=== PATIENT | female | born 1955 | race American Indian/Alaskan Native ===

== ENCOUNTER 2017-08-19 12:09 | Emergency (ER) | payer MEDICAID ==
[2017-08-19 12:34] VITALS: BP 134/81
--- NOTE | 2017-08-19 16:25 | Emergency Department Report ---
Blank Doc - Documentation Documentation: Patient presents with complaint of headache. Patient reports that for the antenna is growing out of her head. Patient denies homicidal suicidal ideation. Denies trauma. Plan ER radiate radiological evaluation in the ER. Plan mental health screening.
[2017-08-19 16:46] LABS: Basophils % (Auto) 0.5 % (0.0-1.8); Eosinophils % (Auto) 0.7 % (0.0-4.3); Hemoglobin 18.2 gm/dl (10.1-14.3); Lymphocytes # (Auto) 2.1 K/mm3 (1.2-5.4); Lymphocytes % (Auto) 44.5 % (13.4-35.0); Mean Corpuscular HGB Conc 33 % (30-34); Mean Corpuscular Hemoglobin 31 pg (28-32); Mean Corpuscular Volume 95 fl (79-97); Monocytes # (Auto) 0.3 K/mm3 (0.0-0.8); Monocytes % (Auto) 7.4 % (0.0-7.3); Platelet Count 182 K/mm3 (140-440); Red Cell Distribution Width 15.8 % (13.2-15.2)
[2017-08-19 16:55] LABS: Alanine Aminotransferase 6 units/L (7-56); Albumin 4.2 g/dL (3.9-5); BUN/Creatinine Ratio 24; Blood Urea Nitrogen 12 mg/dL (7-17); Calcium 9.5 mg/dL (8.4-10.2); Hemolysis Index 20
--- NOTE | 2017-08-19 18:34 | Cat Scan Report ---
FINAL REPORT EXAM: CT HEAD/BRAIN WO CON HISTORY: Alterted Mental Status TECHNIQUE: CT was performed from the foramen magnum through the vertex in the axial plane without the use of intravenous contrast. PRIORS: None. FINDINGS: The fry/white matter attenuation pattern is normal. There is no mass lesion or mass effect. There are no abnormal extra-axial fluid collections. There is no evidence of acute intracranial hemorrhage or infarct. The ventricles are of normal size and configuration. The skull and orbits are unremarkable. The visualized paranasal sinuses are clear. IMPRESSION: Normal CT of the head.
== END 2017-08-20 01:30 | disposition left against medical advice (07) ==
LOC: ED 12:09
DX: R42 Dizziness and giddiness (principal); Z53.21 Procedure and treatment not carried out due to patient leaving prior to being seen by health care provider; Z79.899 Other long term (current) drug therapy
CPT/HCPCS: 36415; 70450; 80053; 84484; 85025; G0480; 80320

== ENCOUNTER 2021-05-16 08:11 | Inpatient (IN) | payer MEDICAID, MEDICARE ==
--- NOTE | 2021-05-16 12:34 | Anesthesia Day of Surgery ---
Anesthesia Day of Surgery - Day of Surgery Patient Examined: Yes Patient H&P Reviewed: Yes Patient is NPO: Yes
--- NOTE | 2021-05-16 12:36 | Anesthesia Consultation ---
Anesthesia Consult and Med Hx Date of service: 05/16/21 - Airway Anesthetic Teeth Evaluation: Edentulous ROM Head & Neck: Adequate Mental/Hyoid Distance: Adequate Mallampati Class: Class II Intubation Access Assessment: Good - Pre-Operative Health Status ASA Pre-Surgery Classification: ASA3 Proposed Anesthetic Plan: General - Pulmonary Hx Smoking: Yes COPD: Yes - Cardiovascular System Hx Hypertension: Yes Hx Peripheral Vascular Disease: Yes - Central Nervous System Hx Psychiatric Problems: Yes (Schizophrenia, DEMENTIA) - Hematic Hx Anemia: No Hx Sickle Cell Disease: No - Other Systems Hx Obesity: No - Additional Comments Anesthesia Medical History Comments: Was here [id number]. NHR under hospice care
[2021-05-16] MEDS ORDERED: ceFAZolin/Water 2 GM/20 ML 2 GM/20 ML SYRINGE IV NR (13:00)
[2021-05-16] MEDS ORDERED: HEPARIN 5,000 UNIT/1 ML VIAL SUB-Q NR (13:00)
[2021-05-16 13:46] LABS: Hematocrit 43.8 % (30.3-42.9); Hemoglobin 13.2 gm/dl (10.1-14.3)
[2021-05-16] MEDS ORDERED: ceFAZolin/Water 2 GM/20 ML 2 GM/20 ML SYRINGE IV ONE (13:47)
[2021-05-16] MEDS ORDERED: LACTATED RINGERS 1,000 ML ONE (13:57)
[2021-05-16 14:00] LABS: Blood Urea Nitrogen 10 mg/dL (7-17); Hemolysis Index 6
[2021-05-16] MEDS: LACTATED RINGERS 1,000 ML IV SCH ×2 (14:00→23:12)
[2021-05-16 14:10] LABS: BUN/Creatinine Ratio 20
[2021-05-16] MEDS ORDERED: propofoL 200 MG/20 ML VIAL IV ONE ×2 (17:08→17:39)
[2021-05-16] MEDS ORDERED: dexAMETHasone 20 MG/5 ML VIAL ONE (17:42)
[2021-05-16] MEDS ORDERED: ONDANSETRON 4 MG/2 ML INJ ONE (17:43)
[2021-05-16] MEDS ORDERED: LIDOCAINE MPF (2%) 20 MG/1 ML VIAL 5 ML ONE (17:43)
[2021-05-16] MEDS ORDERED: HYDROmorphone 1 MG/1 ML INJ ONE (17:47)
[2021-05-16] MEDS ORDERED: SODIUM CHLORIDE 0.9% IRR 1,500 ML BOTTLE IR ONE (17:48)
--- NOTE | 2021-05-16 19:01 | Procedure Note ---
Date of procedure: 05/16/21 Pre-op diagnosis: Necrotic left BKA stump Post-op diagnosis: same Procedure: Left AKA Description of procedure: Pt was placed supine on the OR table. General anesthesia was administered. Left knee and thigh were prepped and draped. A fish mouth incision was made at the level of the distal thigh. Greater saphenous vein was clamped, divided and ligated with 2-0 silk ties. Fascia and musculature was transected with the Bovie. The SFA & SFV were individually clamped, divided and ligated with 0-silk ties. Posterior musculature was transected with an amputation knife. The periosteum of the femur was elevated. Femur was amputated high with a bone saw. Posterior and anterior fascia were approximated with interrupted sutures of 0-Vicryl. Skin was approximated with melissa and a running 3-0 Nylon suture. Xeroform gauze was applied to the inci jeff followed by fluffed 4 X 4's, Kerlix wrap and Coban wrap. Pt tolerated the procedure well. Pt was taken to PACU in stable condition. Anesthesia: GETA Surgeon: NICHO ROBERTS Estimated blood loss: 50-100ml Pathology: list (Left BKA stump and distal thigh) Specimen disposition: to lab Condition: stable Disposition: PACU
--- NOTE | 2021-05-16 19:03 | History and Physical Report ---
History of Present Illness Date of admission: 05/16/21 11:58 Chief complaint: Leg is looking bad History of present illness: 65 YO Female [facility] Facility Resident currently on Hospice Care with CHF, COPD, HTN, PVD complicated by Left Lower Limb Ischemia, Schizophrenia, Vascular Dementia, Cerebral Atherosclerosis, Debility found to have worsening left lower extremity ischemia. Patient has diminished cognition and unable to provide history. Patient history taken from medical record as well as family who made available by telephone for interview. As per family "the leg has got ten worse". Patient seen and evaluated by surgical team and taken urgently to the operating room for surgical intervention due to critical left lower extremity ischemia. Patient admitted to medical floor due to increased risk of worsening symptoms. No reports of fever, chills, chest pain, palpitation, adductive cough, skin rash, recent contact, known exposure to COVID-19. Prior admission on 04/19/2021 reviewed. All medication listed at time of admission has been reconciled. Advanced care planning conducted. Patient family request urgent surgical intervention at this time. No further history is obtainable. Patient has diminished cognition but has a positive gag reflex and is able to protect her airway without difficulty. Past History Past Medical History: COPD, hypertension, PVD, other (See HPI) Past Surgical History: Other (Left BKA) Social history: single Medications and Allergies Allergies Allergy/AdvReac Type Severity Reaction Status Date / Time chlorpromazine HCl AdvReac Unknown Verified 08/19/17 12:30 [From Thorazine] Home Medications Medication Instructions Recorded Confirmed Last Taken Type Albuterol Sulfate [Proventil Hfa] 2 puff IH Q6H PRN 04/19/21 05/14/21 Unknown History Calcium Carbonate [Calcium] 500 mg PO QDAY 04/19/21 05/14/21 Unknown History Cetirizine HCl [Allergy] 10 mg PO QDAY 04/19/21 05/14/21 Unknown History Cholecalciferol (Vitamin D3) 50 mcg PO QDAY 04/19/21 05/14/21 Unknown History [Vitamin D3] Dicyclomine [Bentyl] 20 mg PO QID PRN 04/19/21 05/14/21 Unknown History Divalproex Sprinkle [Depakote 500 mg PO BID 04/19/21 05/14/21 Unknown History Sprinkle] Fluticasone/Salmeterol [Advair 1 puff IH Q12H 04/19/21 05/14/21 Unknown History Diskus 250-50 mcg] Omeprazole 40 mg PO QDAY 04/19/21 05/14/21 Unknown History LORazepam [Ativan] 1 mg PO Q4H PRN #30 04/24/21 05/14/21 Unknown Rx LORazepam [Ativan] 1 mg PO QHS #30 04/24/21 05/14/21 Unknown Rx Ondansetron HCl [Zofran] 4 mg PO Q4H PRN #30 04/24/21 05/14/21 Unknown Rx QUEtiapine [SEROquel] 200 mg PO BID #60 04/24/21 05/14/21 Unknown Rx traMADoL [Ultram 50 MG tab] 50 mg PO Q4HR PRN #90 04/24/21 05/14/21 Unknown Rx Ascorbic Acid [Vitamin C] 500 mg PO DAILY 05/14/21 05/14/21 Unknown History DOXYCYCLINE Hyclate [Vibramycin] 100 mg PO Q12HR 05/14/21 05/14/21 Unknown History Multivitamin with Minerals [Hair, 1 each PO DAILY 05/14/21 05/14/21 Unknown History Skin and Nails] Oxycodone HCl/Acetaminophen 1 tab PO Q6H PRN 05/14/21 05/14/21 Unknown History [Oxycodone-Acetaminophn 7.5-325] Zinc Gluconate [Zinc] 50 mg PO DAILY 05/14/21 05/14/21 Unknown History Active Meds: Active Medications Heparin Sodium (Porcine) (Heparin 5,000 Unit/1 Ml Vial) 5,000 unit SUB-Q PREOP NR Stop: 05/16/21 20:00 Last Admin: 05/16/21 14:10 Dose: 5,000 unit Cefazolin Sodium (Ancef/Sterile Water 2 Gm/20 Ml) 2 gm in 20 mls @ 80 mls/hr IV PREOP NR Stop: 05/16/21 20:00 Lactated Ringer's (Lactated Ringers) 1,000 mls @ 42 mls/hr IV DIRECT LEE Last Admin: 05/16/21 14:00 Dose: 42 mls/hr Review of Systems ROS unobtainable: due to mental status Exam - Constitutional Vitals: Temp Pulse Resp BP Pulse Ox 97.6 F 72 18 115/66 97 05/16/21 12:00 05/16/21 12:30 05/16/21 12:30 05/16/21 12:30 05/16/21 12:30 General appearance: Present: mild distress - EENT Eyes: Present: PERRL ENT: clear oral mucosa, hearing decreased - Neck Neck: Present: supple, normal ROM - Respiratory Respiratory: bilateral: CTA - Cardiovascular Heart Sounds: Present: S1 & S2. Absent: rub, click - Extremities Extremity abnormal: cyanosis, erythema, pulses diminished (Left lower extremity) Peripheral Pulses: abnormal - Abdominal General gastrointestinal: Present: soft, non-tender, non-distended, normal bowel sounds Female genitourinary: Present: normal - Rectal Rectal Exam: normal exam-external/orifice - Integumentary Integumentary: Present: clear, dry, clammy - Musculoskeletal Musculoskeletal: generalized weakness - Psychiatric Psychiatric: no appropriate mood/affect, no intact judgment & insight, no memory intact - Neurologic Neurologic: CNII-XII intact, no focal deficits, moves all extremities, no gait normal Results - Labs CBC & Chem 7: 05/16/21 12:00 05/16/21 12:00 Labs: Abnormal lab results 05/16/21 05/16/21 Range/Units 12:00 12:00 Hct 43.8 H (30.3-42.9) % Sodium 136 L (137-145) mmol/L Creatinine 0.5 L (0.6-1.2) mg/dL Glucose 115 H (65-100) mg/dL Assessment and Plan - Patient Problems (1) Critical lower limb ischemia Current Visit: No Status: Acute Plan to address problem: Supportive care, pain control, surgical team consulted. Surgical intervention as per surgical team. Patient taken urgently to the OR for left lower extremity amputation. Pain control, supportive care. (2) Hyponatremia Current Visit: Yes Status: Acute Plan to address problem: IV fluid resuscitation therapy, BMP, repeat BMP in a.m. (3) Peripheral vascular disease Current Visit: Yes Status: Acute Plan to address problem: Chronic, supportive care, continue medical management, outpatient surgical follow-up. (4) COPD (chronic obstructive pulmonary disease) Current Visit: No Status: Acute Plan to address problem: Supplemental oxygen, pulse oximetry, nebulizer therapy. No acute exacerbation at this time. (5) Advance care planning Current Visit: Yes Status: Acute Plan to address problem: Disease education conducted, care plan discussed, diagnosis discussed, prognosis discussed, patient is full code. +30 minutes.
[2021-05-16] MEDS ORDERED: ALBUTEROL 2.5 MG/3 ML NEBU IH PRN (19:06)
[2021-05-16] MEDS ORDERED: ACETAMINOPHEN 325 MG TAB PO PRN (19:06)
[2021-05-16] MEDS ORDERED: ONDANSETRON 4 MG/2 ML INJ IV PRN (19:06)
[2021-05-16] MEDS ORDERED: HYDROmorphone 1 MG/1 ML INJ IV PRN (19:06)
[2021-05-16] MEDS ORDERED: DICYCLOMINE 20 MG TAB PO PRN (19:08)
[2021-05-16] MEDS ORDERED: LORazepam 1 MG TAB PO PRN (19:08)
[2021-05-16] MEDS ORDERED: traMADol 50 MG TAB PO PRN (19:33)
--- NOTE | 2021-05-16 19:55 | Post Anesthesia Evaluation ---
- Post Anesthesia Evaluation Patient Participated: No (Hx of dementia/schizophrenia) Airway Patent: Yes Stable Respiratory Function: Yes Nausea/Vomiting: No Temp > 96.8F: Yes Pain Manageable: Yes Adequeate Hydration: Yes Anesthesia Complications: No Block Receding Appropriately: Not Applicable Patient on Ventilator: No
[2021-05-16] MEDS ORDERED: SODIUM CHLORIDE 0.9% 1000 ML 1,000 ML IV SCH (20:15)
[2021-05-16] MEDS: QUEtiapine 200 MG TAB PO SCH (23:02)
[2021-05-16] MEDS: DIVALPROEX SPRINKLE 125 MG CAP PO SCH (23:03)
[2021-05-16] MEDS: oxyCODONE /ACETAMINOPHEN 5-325MG TAB PO PRN (23:05)
[2021-05-16 23:06] LABS: Mean Corpuscular HGB Conc 31 % (30-34); Mean Corpuscular Volume 83 fl (79-97); Red Blood Count 5.26 M/mm3 (3.65-5.03)
[2021-05-16 23:09] LABS: Eosinophils % (Auto) 0.2 % (0.0-4.3); Hematocrit 43.6 % (30.3-42.9); Hemoglobin 13.5 gm/dl (10.1-14.3); Monocytes % (Auto) 1.5 % (0.0-7.3); Platelet Count 202 K/mm3 (140-440); Red Cell Distribution Width 23.1 % (13.2-15.2)
[2021-05-16 23:10] LABS: Basophils % (Auto) 1.2 % (0.0-1.8); Lymphocytes # (Auto) 0.3 K/mm3 (1.2-5.4); Monocytes # (Auto) 0.1 K/mm3 (0.0-0.8)
[2021-05-17] MEDS: oxyCODONE /ACETAMINOPHEN 5-325MG TAB PO PRN (05:47)
[2021-05-17] MEDS: PANTOPRAZOLE 40 MG TAB PO SCH (09:41)
[2021-05-17] MEDS: QUEtiapine 200 MG TAB PO SCH ×2 (09:42→22:00)
[2021-05-17] MEDS: MULTIVITAMINS ,THERAPEUTIC TAB PO SCH (09:42)
[2021-05-17] MEDS: ZINC SULFATE 220 MG CAP PO SCH (09:42)
[2021-05-17] MEDS: ASCORBIC ACID 500 MG TAB PO SCH (09:42)
[2021-05-17] MEDS: CETIRIZINE 10 MG TAB PO SCH (09:43)
[2021-05-17] MEDS: CHOLECALCIFEROL (VIT D3) 1000 UNIT (25 mcg) TAB PO SCH (09:43)
[2021-05-17] MEDS: CALCIUM CARBONATE 500 MG TAB CHEW PO SCH (09:43)
[2021-05-17] MEDS: DIVALPROEX SPRINKLE 125 MG CAP PO SCH ×2 (09:44→22:00)
[2021-05-17] MEDS ORDERED: ZINC GLUCONATE 50 MG PO SCH (10:00)
[2021-05-17] MEDS ORDERED: NON-FORMULARY EACH (Omeprazole [Omeprazole] 40 MG Capsule.Dr) PO SCH (10:00)
[2021-05-17] MEDS ORDERED: NON-FORMULARY EACH (Multivitamin With Minerals [Hair, Skin And Nails] 1 EACH Tablet) PO SCH (10:00)
[2021-05-17] MEDS ORDERED: CHOLECALCIFEROL 50 MCG PO SCH (10:00)
[2021-05-17] MEDS ORDERED: NON-FORMULARY EACH (Calcium Carbonate [Calcium] 600 MG Tablet) PO SCH (10:00)
--- NOTE | 2021-05-17 11:13 | Progress Note ---
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 2) AKA is an inpt procedure only. Pt can be discharged back to the [facility] once "Inpatient status" has been obtained. This should include a 72 hour hospitalization before discharge. 3) F/u with me in my office in 2 weeks. 4) Make get AKA stump wet after discharge. Subjective Date of service: 05/17/21 Patient Reports: Positive: no new complaints Objective Vital Signs - 12hr 05/17/21 04:06 Temperature 96.3 F L Pulse Rate 99 H Respiratory 20 Rate O2 Sat by Pulse 91 Oximetry - Musculoskeletal other (Left AKA dressing is c/d/i.) - Labs 05/16/21 22:08 05/16/21 12:00 Diabetes panel 05/16/21 Range/Units 12:00 Sodium 136 L (137-145) mmol/L Potassium 4.3 (3.6-5.0) mmol/L Chloride 99.4 (98-107) mmol/L Carbon Dioxide 26 (22-30) mmol/L BUN 10 (7-17) mg/dL Creatinine 0.5 L (0.6-1.2) mg/dL Glucose 115 H (65-100) mg/dL Calcium 10.0 (8.4-10.2) mg/dL Calcium panel 05/16/21 Range/Units 12:00 Calcium 10.0 (8.4-10.2) mg/dL Pituitary panel 05/16/21 Range/Units 12:00 Sodium 136 L (137-145) mmol/L Potassium 4.3 (3.6-5.0) mmol/L Chloride 99.4 (98-107) mmol/L Carbon Dioxide 26 (22-30) mmol/L BUN 10 (7-17) mg/dL Creatinine 0.5 L (0.6-1.2) mg/dL Glucose 115 H (65-100) mg/dL Calcium 10.0 (8.4-10.2) mg/dL Adrenal panel 05/16/21 Range/Units 12:00 Sodium 136 L (137-145) mmol/L Potassium 4.3 (3.6-5.0) mmol/L Chloride 99.4 (98-107) mmol/L Carbon Dioxide 26 (22-30) mmol/L BUN 10 (7-17) mg/dL Creatinine 0.5 L (0.6-1.2) mg/dL Glucose 115 H (65-100) mg/dL Calcium 10.0 (8.4-10.2) mg/dL
--- NOTE | 2021-05-17 15:19 | Progress Note ---
Assessment and Plan (1) Critical lower limb ischemia Current Visit: No Status: Acute Plan to address problem: Supportive care, pain control, surgical team consulted. s/p left AKA yesterday (2) Hyponatremia Current Visit: Yes Status: Acute Plan to address problem: IV fluid resuscitation therapy, repeat BMP in a.m. (3) Peripheral vascular disease Current Visit: Yes Status: Acute Plan to address problem: Chronic, supportive care, continue medical management, outpatient surgical follow-up. (4) COPD (chronic obstructive pulmonary disease) Current Visit: No Status: Acute Plan to address problem: Supplemental oxygen, pulse oximetry, nebulizer therapy. No acute exacerbation at this time. (5) Advance care planning Current Visit: Yes Status: Acute Plan to address problem: Disease education conducted, care plan discussed, diagnosis discussed, prognosis discussed, patient is full code. +30 minutes. --cont pain control, supportive care, wound care Subjective Date of service: 05/17/21 Interval history: Patient seen and examined. Medical records and medication list reviewed. No acute event overnight noted by the RN. Patient denies any chest pain or difficulty breathing. Patient is tolerating diet. c/o pain at the surgical site Discussed plan of care at bedside with patient. Objective - Exam Narrative Exam: General appearance: Present: mild distress - EENT Eyes: Present: PERRL ENT: clear oral mucosa, hearing decreased - Neck Neck: Present: supple, normal ROM - Respiratory Respiratory: bilateral: CTA - Cardiovascular Heart Sounds: Present: S1 & S2. Absent: rub, click - Extremities Extremity abnormal: left AKA with surgical dressing - Abdominal General gastrointestinal: Present: soft, non-tender, non-distended, normal bowel sounds - Integumentary Integumentary: Present: clear, dry, clammy - Musculoskeletal Musculoskeletal: generalized weakness - Psychiatric Psychiatric: no appropriate mood/affect, no intact judgment & insight, no memory intact - Neurologic Neurologic: CNII-XII intact, no focal deficits, moves all extremities, no gait normal - Constitutional Vitals: Vital Signs - 12hr 05/17/21 05/17/21 04:06 11:17 Temperature 96.3 F L 98.9 F Pulse Rate 99 H 107 H Respiratory 20 20 Rate Blood Pressure 131/63 O2 Sat by Pulse 91 90 Oximetry - Labs CBC & Chem 7: 05/16/21 22:08 05/16/21 12:00 Labs: Abnormal lab results 05/16/21 Range/Units 22:08 WBC 3.9 L (4.5-11.0) K/mm3 RBC 5.26 H (3.65-5.03) M/mm3 Hct 43.6 H (30.3-42.9) % MCH 26 L (28-32) pg RDW 23.1 H (13.2-15.2) % Lymph % (Auto) 8.0 L (13.4-35.0) % Lymph # (Auto) 0.3 L (1.2-5.4) K/mm3 Seg Neutrophils % 89.1 H (40.0-70.0) %
[2021-05-18] MEDS: MULTIVITAMINS ,THERAPEUTIC TAB PO SCH (09:37)
[2021-05-18] MEDS: QUEtiapine 200 MG TAB PO SCH (09:38)
[2021-05-18] MEDS: DIVALPROEX SPRINKLE 125 MG CAP PO SCH (09:38)
[2021-05-18] MEDS: CHOLECALCIFEROL (VIT D3) 1000 UNIT (25 mcg) TAB PO SCH (09:38)
[2021-05-18] MEDS: ZINC SULFATE 220 MG CAP PO SCH (09:38)
[2021-05-18] MEDS: PANTOPRAZOLE 40 MG TAB PO SCH (09:38)
[2021-05-18] MEDS: CETIRIZINE 10 MG TAB PO SCH (09:38)
[2021-05-18] MEDS: CALCIUM CARBONATE 500 MG TAB CHEW PO SCH (09:38)
[2021-05-18] MEDS: ASCORBIC ACID 500 MG TAB PO SCH (09:39)
--- NOTE | 2021-05-18 16:02 | Discharge Summary ---
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 As per family "the leg has gotten worse". Patient seen and evaluated by surgical team and taken urgently to the operating room for surgical intervention due to critical left lower extremity ischemia. Patient is s/p AKA, pain under control, post-op care and wound care provided. Patient was then discharged back to SNF in stable condition. Disposition: [facility] Final Discharge Diagnosis (Prints w/discharge instructions): --Critical lower limb ischemia s/p left AKA. -- Hyponatremia. -- Peripheral vascular disease. --COPD (chronic obstructive pulmonary disease). --Schizophrenia,. --Vascular Dementia Time spent for discharge: 34 minutes Core Measure Documentation - Palliative Care Palliative Care/ Comfort Measures: Hospice Care - Core Measures Any of the following diagnoses?: history only Exam - Physical Exam Narrative exam: General appearance: Present: mild distress - EENT Eyes: Present: PERRL ENT: clear oral mucosa, hearing decreased - Neck Neck: Present: supple, normal ROM - Respiratory Respiratory: bilateral: CTA - Cardiovascular Heart Sounds: Present: S1 & S2. Absent: rub, click - Extremities Extremity abnormal: left AKA with surgical dressing - Abdominal General gastrointestinal: Present: soft, non-tender, non-distended, normal bowel sounds - Integumentary Integumentary: Present: clear, dry, clammy - Musculoskeletal Musculoskeletal: generalized weakness - Psychiatric Psychiatric: no appropriate mood/affect, no intact judgment & insight, no memory intact - Neurologic Neurologic: CNII-XII intact, no focal deficits, moves all extremities, no gait normal - Constitutional Vitals: Temp Pulse Resp BP Pulse Ox 97.0 F L 95 H 20 107/45 94 05/18/21 11:05 05/18/21 11:05 05/18/21 11:05 05/18/21 11:05 05/18/21 11:06 Plan Activity: fall precautions Weight Bearing Status: Non-Weight Bearing Diet: advance as tolerated Wound: per your surgeon's advice Follow up with: PRIMARY CARE, [Primary Care Provider] - 7 Days NICHO ROBERTS MD [Staff Physician] - 7 Days Prescriptions: Oxycodone HCl/Acetaminophen [Oxycodone-Acetaminophn 7.5-325] 1 tab PO Q6H PRN #20 PRN Reason: Pain , Severe (7-10) oxyCODONE /ACETAMINOPHEN [Percocet 5/325 mg] 1 tab PO Q6H PRN #20 tablet PRN Reason: Pain, Moderate (4-6)
[2021-05-18 16:57] VITALS: BP 110/54
== END 2021-05-18 19:30 | DRG 475 ==
LOC: 3A 11:58
PROVIDERS: ADMIT Surgery; ATTEND Internal Medicine
PROC: 0Y6D0Z3 Detachment at Left Upper Leg, Low, Open Approach (ICD-10-PCS; principal; 2021-05-16)
DX: T87.54 Necrosis of amputation stump, left lower extremity (principal); E87.1 Hypo-osmolality and hyponatremia; I70.222 Atherosclerosis of native arteries of extremities with rest pain, left leg; Z20.822 Contact with and (suspected) exposure to COVID-19; Y83.8 Other surgical procedures as the cause of abnormal reaction of the patient, or of later complication, without mention of misadventure at the time of the procedure; F20.9 Schizophrenia, unspecified; J44.9 Chronic obstructive pulmonary disease, unspecified; I11.0 Hypertensive heart disease with heart failure; I50.9 Heart failure, unspecified; F01.50 Vascular dementia, unspecified severity, without behavioral disturbance, psychotic disturbance, mood disturbance, and anxiety; Z89.512 Acquired absence of left leg below knee; Z88.8 Allergy status to other drugs, medicaments and biological substances
CPT/HCPCS: 36415; 80048; 85014; 85018; 85025; 88307; 88311; G0378; J3490; J7120; J0690; J1100; J1170; J1644; J2405; J2704; U0003